=== PATIENT | male | born 2000 | race Two or more races ===

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

== ENCOUNTER 2023-05-04 06:20 | Emergency (ER) | payer MEDICAID ==
[~2023-05-04] VITALS: Ht 182.9 cm; Wt 121.1 kg
[2023-05-04 07:12] LABS: Basophils # (auto) 0 10 ^3/uL (0-0.2); Basophils % (auto) 0.4 % (0.0-2.0); Eosinophils # (auto) 0.1 10 ^3/uL (0-0.8); Eosinophils % (auto) 1.3 % (0.0-7.0); Hematocrit 45.9 % (41.0-53.0); Hemoglobin 15.6 g/dL (13.5-17.5); Lymphocytes # (auto) 3.2 10 ^3/uL (0.4-5.4); Lymphocytes % (auto) 32.5 % (10.0-50.0); Mean Corpuscular Hemoglobin 29.5 pg (28.0-32.0); Mean Corpuscular Volume 86.8 fL (80.0-100.0); Monocytes # (auto) 0.7 10 ^3/uL (0-1.3); Monocytes % (auto) 7.2 % (0.0-12.0); Neutrophils # (auto) 5.7 10 ^3/uL (1.6-8.6); Neutrophils % (auto) 58.6 % (37.0-80.0); Nucleated Red Blood Cells % 0.1 %; Red Blood Cells 5.29 10^6/uL (4.5-5.90); Red Cell Distribution Width 13.4 % (11.8-14.3); White Blood Cell 9.7 10^3/uL (4.4-10.8)
[2023-05-04 07:18] LABS: Alanine Aminotransferase 79 U/L (7-40); Alkaline Phosphatase 93 U/L (46-116); Anion Gap 8 (5-15); Aspartate Aminotransferase 30 U/L (13-40); BUN/Creatinine Ratio 10.9 (10.0-20.0); Blood Urea Nitrogen 12 mg/dL (9-23); Calcium 9.1 mg/dL (8.7-10.4); Carbon Dioxide 25 mmol/L (20-30); Chloride 106 mmol/L (98-107); Glucose 93 mg/dL (74-106); Lipase 51 U/L (12-53); Potassium 3.6 mmol/L (3.5-5.1); Sodium 139 mmol/L (136-145)
[2023-05-04 07:19] LABS: Bilirubin, Total 0.5 mg/dL (0.2-1.0); Total Protein 8.1 g/dL (5.7-8.2)
[2023-05-04 07:25] LABS: Urine Bacteria NONE SEEN /hpf (None Seen); Urine Blood Negative /uL (Negative); Urine Clarity Clear (Clear); Urine Color Yellow (Yellow); Urine Protein, UAD TRACE (Negative); Urine Specific Gravity 1.032 (1.001-1.035); Urine Urobilinogen Normal (Negative); Urine WBC 1 /hpf (0 - 3); Urine pH 5.5 (5.0-8.0)
[2023-05-04] MEDS ORDERED: IOHEXOL 300 MG/ML 100ML BOTTLE IJ ONE (07:25)
[2023-05-04] MEDS ORDERED: metroNIDAZOLE 500MG/100ML 100 ML IV ONE (09:45)
[2023-05-04] MEDS ORDERED: CIPROFLOXACIN 400MG/200ML 200 ML IV ONE (09:45)
[2023-05-04] MEDS ORDERED: CIPR-173 PO (09:46)
[2023-05-04] MEDS ORDERED: METR-344 PO (09:46)
[2023-05-04 09:59] VITALS: BP 130/74; PULSE 82; RESP 19; TEMP 98.2; O2SAT 97
== END 2023-05-04 10:09 | disposition home or self-care (01) ==
LOC: EDBD 06:20 → ER 06:20
DX: K52.9 Noninfective gastroenteritis and colitis, unspecified (principal); J45.909 Unspecified asthma, uncomplicated
CPT/HCPCS: 36415; 74177; 80053; 81001; 83690; 85025; 99285; Q9967

== ENCOUNTER 2025-04-04 21:56 | Emergency (ER) | payer MEDICAID ==
[~2025-04-04 21:56] MED LIST: CIPR-173 PO; METR-344 PO
[2025-04-04 21:57] VITALS: BP 143/92; PULSE 75; RESP 20; TEMP 97.9; O2SAT 97
[2025-04-04] MEDS: diphenhdrAMINE HCL 50 MG/1 ML VL IM ONE (22:16)
--- NOTE | 2025-04-04 23:53 | ED.PDOC ---
HPI Allergic reaction HPI Comments This patient is a 24-year-old morbidly obese male who arrives the ED today for evaluation of allergic reaction status post a eating peanuts earlier. Patient states his girlfriend had given him if food item that is they were unaware had peanuts in. Patient states it subsequent to eating the food item, he began to experience some tongue swelling and throat tightness. Patient arrives with same complaints without any progression. Patient did not look toxic and was satting well on room air. Chief Complaint: Allergic Reaction Time Seen by MD: 22:01 Reviewed Notes: Nurses Notes Allergies: Uncoded Allergies: PEANUTS (Allergy, Unknown, 08/14/19) Home Meds Active Scripts Metronidazole (Flagyl) 500 Mg Tab, 1 TAB PO BID, #14 TAB Prov:BUZZ LUEVANO MD 05/04/23 Ciprofloxacin Hcl (Cipro) 500 Mg Tab, 1 TAB PO BID, #14 TAB Prov:BUZZ LUEVANO MD 05/04/23 Information Source: Patient Mode of Arrival: Ambulatory Severity: Moderate Rash: None SOB: None Difficulty swallowing: Moderate Pruritus: None Timing: Minutes Duration: Since onset Prehospital treatment: None Location: Throat, Tongue Exposed to: Food Developed: Difficult Swallowing History of: Prior Similar Episodes Modyifying Factors: Not Used Associated Sign and Symptoms: None Past Medical History PAST MEDICAL HISTORY: Asthma Past Medical History (Other): History of peanut allergies Surgical History: Denies all surgeries Family History Family History: Family hx of DM Social History Smoker: Non-Smoker Alcohol: Denies ETOH Use Drugs: Denies Drug Use Lives In: Home Constitutional: denies: chills, diaphoresis, fatigue, fever, malaise, sweats, weakness, others EENTM: reports: others (Patient complains of tongue swelling and throat swelling.); denies: blurred vision, double vision, ear bleeding, ear discharge, ear drainage, ear pain, ear ringing, eye pain, eye redness, hearing loss, mouth pain, mouth swelling, nasal discharge, nose bleeding, nose congestion, nose pain, photophobia, tearing, throat pain, throat swelling, voice changes Respiratory: denies: cough, hemoptysis, orthopnea, SOB at rest, shortness of breath, SOB with excertion, stridor, wheezing, others Cardiovascular: denies: chest pain, dizzy spells, diaphoresis, Dyspnea on exertion, edema, irregular heart beat, left arm pain, lightheadedness, palpitations, PND, syncope, others Gastrointestinal: denies: abdomen distended, abdominal pain, blood streaked bowels, constipated, diarrhea, dysphagia, difficulty swallowing, hematemesis, melena, nausea, poor appetite, poor fluid intake, rectal bleeding, rectal pain, vomiting, others Genitourinary: denies: burning, dysuria, flank pain, frequency, hematuria, incontinence, penile discharge, penile sore, pain, testicle pain, testicle swelling, urgency, others Neurological: denies: dizziness, fainting, headache, left sided numbness, left sided weakness, numbness, paresthesia, pre-existing deficit, right sided numbness, right sided weakness, seizure, speech problems, tingling, tremors, weakness, others Musculoskeletal: denies: back pain, gout, joint pain, joint swelling, muscle pain, muscle stiffness, neck pain, others Integumetry: denies: bruises, change in color, change in hair/nails, dryness, laceration, lesions, lumps, rash, wounds, others Allergic/Immunocompromised: denies: Difficulty Healing, Frequent Infections, Hives, Itching, others Hematologic/Lymphatic: denies: anemia, blood clots, easy bleeding, easy bruising, swollen glands, others Endocrine: denies: excessive hunger, excessive sweating, excessive thirst, excessive urination, flushing, intolerance to cold, intolerance to heat, unexplained weight gain, unexplained weight loss, others Psychiatric: denies: anxiety, bipolar disorder, depression, hopeless, panic disorder, schizophrenia, sleepless, suicidal, others Physical Exam General Appearance: Moderate Distress (Moderate distress due to anxiety as much his edema concerns.), Normal HEENT: TMs Normal, Other (Mild swelling noted to the tongue without any appreciable swelling in the oropharyngeal region. Airway appears patent and without stridor.) Neck: Full Range of Motion, Non-Tender, Normal, Normal Inspection Respiratory: Chest Non-Tender, Lungs Clear, No Accessory Muscle Use, No Respiratory Distress, Normal Breath Sounds Cardiovascular: No Edema, No JVD, No Murmur, No Gallop, Normal Peripheral Pulses, Regular Rate/Rhythm Breast Exam: Deferred Gastrointestinal: No Organomegaly, Non Tender, No Pulsatile Mass, Normal Bowel Sounds, Soft Genitalia: Deferred Pelvic: Deferred Rectal: Deferred Extremities: No calf tenderness, Normal capillary refill, Normal inspection, Normal range of motion, Non-tender, No pedal edema Neurologic: Alert Cerebellar Function: NOT DONE Reflexes: NOT DONE Skin: Dry, Normal Color, Warm Lymphatic: No Adenopathy Was a procedure done? Was a procedure done?: No Differential diagnosis (all) Differential Diagnosis: Anaphylaxis, Angioedema, Other (Food allergy) X-Ray, Labs, Meds, VS Vital Signs Date Time Temp Pulse Resp B/P (MAP) Pulse Ox O2 Delivery O2 Flow Rate FiO2 04/04/25 21:57 97.9 75 20 143/92 97 97.9 Current Medications Medications (Trade) Dose Ordered Sig/Lisha Route Start Time Stop Time Status Last Admin Dexamethasone Sodium Phosphate (Decadron Injection) 10 mg ONCE ONCE IM 04/04/25 22:15 04/04/25 22:16 DC 04/04/25 22:16 Diphenhydramine HCl (Benadryl Injection) 25 mg ONCE ONCE IM 04/04/25 22:15 04/04/25 22:16 DC 04/04/25 22:16 X-Ray, Labs, Meds, VS Comment Patient arrived his proceed some dexamethasone and Benadryl to address his allergic response. Patient was watched in the ED for slightly under 2 hours and patient responded well to treatment. Advised patient to follow up with the primary care provider for discussions related to today's visit. We attempted to locate the patient after 2 hours, but it appears the patient has eloped from the facility. Time of 1ST Reevaluation: 00:51 Reevaluation 1ST: Improved Consultation: PCP Patient Education/Counseling: Diagnosis, Treatment Family Education/Counseling: Diagnosis, Treatment SEPSIS Sepsis Screen Date sepsis recognized/suspect: Apr 04, 2025 Time Sepsis recognized/suspect: 2199 Recent Procedure: No On Antibiotic Therapy: No Respiratory Rate >20: No Heart Rate >90: No Temp<36 C (96.8 F) or >38.3 C: No SBP <90 or MAP <65 mmHG: No New Acute Mental Status Change: No Is the patient on CPAP, BIPAP,: No Vital Signs Date Time Temp Pulse Resp B/P (MAP) Pulse Ox O2 Delivery O2 Flow Rate FiO2 04/04/25 21:57 97.9 75 20 143/92 97 97.9 Medications Medications Dose Ordered Sig/Lisha Route Start Time Stop Time Status Last Admin Dose Admin Dexamethasone Sodium Phosphate 10 mg ONCE ONCE IM 04/04/25 22:15 04/04/25 22:16 DC 04/04/25 22:16 Diphenhydramine HCl 25 mg ONCE ONCE IM 04/04/25 22:15 04/04/25 22:16 DC 04/04/25 22:16 Departure 1 Departure Time of Disposition: 00:52 Impression: Primary Impression: Allergic reaction to food Additional Impression: Angioedema Disposition: 07 LEFT AWOL/ELOPED Condition: Stable Discharged With: Self Critical Care Note Critical Care Time?: No Stability Stability form required: No Heart Score Heart Score: Heart Score Response (Comments) Value History N/A 0 EKG N/A 0 Age N/A 0 Risk Factors N/A 0 Troponin N/A 0 Total 0 LILA BRUNO PAC Apr 04, 2025 23:53
== END 2025-04-05 00:53 | disposition left against medical advice (07) ==
LOC: ER 21:56
DX: T78.3XXA Angioneurotic edema, initial encounter (principal); R22.9 Localized swelling, mass and lump, unspecified; T78.19XA Other adverse food reactions, not elsewhere classified, initial encounter; Z91.010 Allergy to peanuts; X58.XXXA Exposure to other specified factors, initial encounter
CPT/HCPCS: 96372; 99284; J1100; J1200